=== PATIENT | male | born 1980 | race Two or more races ===

== ENCOUNTER 2025-02-17 16:00 | Emergency (ER) | payer BC, SELFPAY ==
[2025-02-17 16:00] VITALS: BMI 32.1
--- NOTE | 2025-02-17 16:03 | EKG_ITS ---
[facility] Test Date: 2025-02-17 Pat Name: SIOBHAN SEPULVEDA Department: Room: - Gender: Male Property [employer] Intern: : 1980 Requested By: Blaise Marroquin (BEBETO) Order Number: [id number] Reading MD: Blaise Marroquin (BEBETO) Measurements Intervals [place] Rate: 78 P: 41 SD: 142 QRS: 55 QRSD: 94 T: 48 QT: 364 QTc: 416 Interpretive Statements SINUS RHYTHM POSSIBLE LEFT ATRIAL ENLARGEMENT [-0.1mV P-WAVE IN V1/V2] Compared to ECG 02/26/2023 11:11:33 Sinus bradycardia no longer present /store/S0/[id number].pdf
[2025-02-17 16:30] VITALS: BP 143/88; PULSE 78; RESP 20; TEMP 37.1; O2SAT 97
--- NOTE | 2025-02-17 16:33 | XR_ITS ---
Examination: CT brain head without contrast. 2-D sagittal coronal reconstructions Date and time of exam:February 17, 2025 7006 hours INDICATIONS: Onset headaches beginning one week ago CTDI: vol (mGy):53 DLP: (mGycm):1145 Technique: Multiple CT axial sections of the brain have been obtained, 5 mm slice thickness. Contrast has not been administered. 2-D sagittal, coronal reconstructions have been obtained Low dose protocols were performed. One or more of the following dose reduction techniques were used; automated exposure control, adjustment of the mA and/or KV according to patient size, use of iterative reconstruction technique. Findings: No significant ventricular enlargement. Intra-axial or extra-axial hemorrhage density is not seen. No mass effect or midline shift Basal cisterns are not remarkable. Fourth ventricle is midline. Cranial vault intact. Impression: Negative for acute hemorrhage, mass effect or midline shift Chronic ethmoid sphenoid sinusitis including 10 mm retention cyst in posterior right ethmoid air cells and bilateral maxillary polypoid sinusitis
--- NOTE | 2025-02-17 16:33 | XR_ITS ---
Examination: PA lateral chest 2 views FINDINGS: Upright PA and lateral chest 2 views Standing time: February 17, 2025 1642 hours Comparison August 25, 2020 INDICATION: Chest pain beginning one week ago. FINDINGS: Accentuation basilar bronchovascular markings. Normal heart size No lobar pneumonia or pulmonary edema IMPRESSION: Basilar bronchitis pattern
--- NOTE | 2025-02-17 16:33 | PD.EDRME ---
Rapid Medical Screening Exam RME Arrival date/time: 02/17/25 16:00 41-year-old male presents emergency dept today with complaints of headache generalized fatigue Chief Complaint: Chest Pain Vital signs: Vital Signs Temperature 98.8 F 02/17/25 16:30 Pulse Rate 78 02/17/25 16:30 Respiratory Rate 20 02/17/25 16:30 Blood Pressure 143/88 H 02/17/25 16:30 Pulse Oximetry (%) 97 02/17/25 16:30 Oxygen Delivery Method Room Air 02/17/25 16:30
[2025-02-17 17:00] LABS: Basophils # (Auto) 0.1 Thou/mm3 (0.0-0.2); Basophils % (Auto) 1 % (0-2.5); Eosinophils # (Auto) 0.2 Thou/mm3 (0.0-0.5); Eosinophils % (Auto) 3 % (0-10); Hematocrit 44.7 % (41.0-53.0); Hemoglobin 16.3 g/dL (13.5-16.0); Immature Granulocytes % (Auto) 0 % (0-0); Immature Granulocytes Auto 0.02 Thou/mm3 (0.00-0.00); Lymphocytes # (Auto) 2.5 Thou/mm3 (1.0-4.8); Lymphocytes % (Auto) 30 % (10-50); Mean Corpuscular HGB Conc 36.5 g/dl (31.0-37.0); Mean Corpuscular Hemoglobin 30.5 pg (25.0-35.0); Mean Corpuscular Volume 84 fL (80-100); Monocytes # (Auto) 0.5 Thou/mm3 (0.0-0.8); Monocytes % (Auto) 6 % (0-12); Neutrophils # (Auto) 5.2 Thou/mm3 (1.8-7.7); Neutrophils % (Auto) 61 % (37-80); Nucleated Red Blood Cell % 0 /100 WBC (0); Platelet Count 306 Thou/mm3 (140-440); RDW Standard Deviation 37.1 fL (35.1-43.9); Red Blood Count 5.35 Miln/mm3 (4.50-5.90); White Blood Count 8.5 Thou/mm3 (3.8-10.6)
[2025-02-17 17:15] LABS: Partial Thromboplastin Time 27.7 Seconds (22.0-36.0); Prothrombin Time 10.9 Seconds (9.0-12.2)
[2025-02-17 17:21] LABS: Alanine Aminotransferase 33 U/L (10-49); Albumin, Serum 4.7 gm/dL (3.5-5.0); Albumin/Globulin Ratio 1.7 (1.2-2.2); Alkaline Phosphatase 129 U/L (46-116); Anion Gap 9 (7-16); Aspartate Amino Transferase 26 U/L (0-34); BUN/Creatinine Ratio 14 Ratio (12-20); Bilirubin,Total 0.5 mg/dL (0.3-1.2); Blood Urea Nitrogen 14 mg/dL (9-23); Carbon Dioxide 22.9 mMol/L (20.0-31.0); Chloride 108 mMol/L (98-107); Estimated Creatinine Clearance 117.1 mL/min (>60); Globulin 2.7 gm/dL (2.3-3.5); Glucose 118 mg/dL (74-106); Osmolality,Calculated 280 (275-295); Potassium 3.8 mMol/L (3.4-5.1); Sodium 140 mMol/L (136-145); Total Protein 7.4 gm/dL (5.7-8.2); Troponin I < 0.002 ng/mL (0.0-0.045); eGFR > 60 See Note
[2025-02-17 17:43] LABS: B-Type Natriuretic Peptide 20 pg/mL (0-100)
[2025-02-17 19:48] LABS: Collection Type, Urine Clean Catch; RBC,Urine 0 /hpf (0-3); Squamous Epithelial Cell,Urine 0 /hpf (0-5); WBC,Urine 0 /hpf (0-5)
[2025-02-17 20:26] LABS: Bilirubin,Urine Negative (Negative); Blood,Urine Negative (Negative); Clarity,Urine Turbid (Clear/Hazy); Color,Urine Yellow (Lt Yel-Yel); Glucose, Urine Negative (Negative); Ketones,Urine Negative (Negative); Leukocyte Esterase,Urine Negative (Negative); Nitrite,Urine Negative (Negative); Protein,Urine 1+ (Neg - Trace); Specific Gravity,Urine 1.029 (1.001-1.035)
[2025-02-17 21:12] LABS: Amphetamine/Methamp Scrn,U Negative (Negative); Barbiturate Screen,Urine Negative (Negative); Benzodiazepines Screen,Urine Negative (Negative); Benzoylecgonine Screen, Ur Negative (Negative); Fentanyl Screen,Urine Negative (Negative); Opiate Screen,Urine Negative (Negative); THC Screen,Urine Negative (Negative)
[2025-02-17 21:30] VITALS: BP 142/90; PULSE 73; RESP 18; TEMP 36.8; O2SAT 99
--- NOTE | 2025-02-17 21:44 | PD.EDCHEST ---
ED Chest Pain RME/HPI General Chief Complaint: Chest Pain Stated Complaint: CHEST PAIN Time Seen by Provider: 02/17/25 21:44 Arrival date/time: 02/17/25 16:00 RME / HPI RME / HPI narrative: 02/17/25 16:00 41-year-old male presents emergency dept today with complaints of headache generalized fatigue Dr. Farias?s Main ED Evaluation: 44yo male presents to the ED for complaints of chest pain and a headache. Patient states he's had left and intermittent tense mid chest pain since Saturday, reporting he's felt generally fatigued since then. Patient reports associated heartburn and dry cough. Patient was concerned after he started feeling lightheaded today, so he came in for evaluation. Patient denies any shortness of breath, fever, chills, N/V or any other associated symptoms. Patient is not on any daily medications. Denies any tobacco use. States he is a former drinker. No known allergies. Related Data Previous Rx's ?Medication ?Instructions ?Recorded acetaminophen 500 mg capsule 1,000 mg (2 x 500 mg) PO Q6H PRN 02/17/25 pain #30 caps aluminum-mag hydroxide-simethicone 10 ml PO TID PRN indigestion 02/17/25 400 mg-400 mg-40 mg/5 mL oral susp #3,000 mL (Maalox Maximum Strength) famotidine 20 mg tablet 20 mg PO QDAY GERD #20 tabs 02/17/25 ibuprofen 600 mg tablet 600 mg PO Q6H PRN pain #20 tabs 02/17/25 Allergies Allergy/AdvReac Type Severity Reaction Status Date / Time No Known Allergies Allergy Verified 02/17/25 16:03 Review of Systems Review of Systems Systems Reviewed: All systems reviewed, normal except as documented Past Medical History Past Medical History NEUROLOGIC: Negative Neurological Disorders CARDIAC: Negative Cardiac Disorders or Congestive Heart Failure RESPIRATORY: Negative Chronic Obstructive Pulmonary Disease (COPD) GASTROINTESTINAL: Negative Gastrointestinal Disorders GENITOURINARY: Negative Genitourinary Disorders or Renal Disease MUSCULOSKELETAL: Negative Musculoskeletal Disorders ENDOCRINE: Negative Endocrine Disorders, Diabetes Mellitus Type 1 or Diabetes Mellitus Type 2 HEMATOLOGIC: Negative Blood Disorders Social History SMOKING STATUS: Never smoker ED Exam Narrative Physical exam: GENERAL APPEARANCE: alert and oriented x 4, well-developed, well-nourished, no acute distress VITALS: All vitals were reviewed and the pulse ox is 99% on room air, which is normal according to my interpretation. HEENT: Normocephalic, atraumatic; pupils equal, round, reactive to light; EOMI; mucous membranes pink, moist; oropharynx clear NECK: Supple LUNGS: CTABL; no wheezes, no rales, no rhonchi HEART: Regular rate, regular rhythm; normal S1, S2; no murmurs ABDOMEN: non distended; normal BS; soft, no tenderness, no guarding, no rebound; no masses, no organomegaly, no hernia BACK: no CVA tenderness EXTREMITIES: atraumatic; no edema NEUROLOGIC: awake; alert and oriented x4; cranial nerves II-XII grossly intact; no focal sensory or motor deficits PSYCHIATRIC: appropriate mood and affect SKIN: warm, dry, normal color; no rashes Course Course Course Narrative: CXR is ordered for determining the etiology of chest pain. Quality Measures none Orders Category Date Time Status EKG (ED ONLY) *Do not use* NOW Care 02/17/25 16:[address] head/brain wo con Stat Exams 02/17/25 16:33 Completed EKG (ED Only) Stat Exams 02/17/25 16:03 Ordered XR chest 2V Stat Exams 02/17/25 16:33 Completed B-Type Natriuretic Peptide Stat Lab 02/17/25 16:40 Completed CBC Stat Lab 02/17/25 16:40 Completed Comprehensive Metabolic Panel Stat Lab 02/17/25 16:40 Completed Drug Screen,Urine Stat Lab 02/17/25 19:31 Completed Magnesium Stat Lab 02/17/25 16:40 Completed Partial Thromboplastin Time Stat Lab 02/17/25 16:40 Completed Prothrombin Time with INR Stat Lab 02/17/25 16:40 Completed Troponin I Stat Lab 02/17/25 16:40 Completed Urinalysis Stat Lab 02/17/25 19:31 Completed Vital Signs Vital signs: Vital Signs Temperature 98.8 F 02/17/25 16:30 Pulse Rate 78 02/17/25 16:30 Respiratory Rate 20 02/17/25 16:30 Blood Pressure 143/88 H 02/17/25 16:30 Pulse Oximetry (%) 97 02/17/25 16:30 Oxygen Delivery Method Room Air 02/17/25 16:30 Chest Pain MDM Narrative MDM Narrative:: Scribe Attestation: 02/17/25 - Ximena Castillo am scribing for and in the presence of Dr. Farias. Patient data External records reviewed:: [facility] previous records (Per chart review, patient was seen here on 11/10/20 for chest pain.) Clinical information provided by:: patient Social determinants that could affect healthcare access:: none Patient has the following chronic illnesses:: none How is presenting disease/condition affected by chronic disease/condition?: no chronic disease Evaluation data The following diagnostics were reviewed and interpreted by me:: lab results, radiology exam(s) and EKG tracing(s) Lab and/or radiology exams considered but not ordered:: none Interpretation Summary: CBC is normal, PT and INR are normal, PTT is normal, Troponin is normal, BNP is normal, CMP is normal, UA is unremarkable, UDS is negative, according to my interpretation. EKG done at 1633, NSR, rate of 78, normal axis, no ectopy, no acute ischemia, according to my interpretation. ------ [facility] Report Signed Patient: SIOBHAN SEPULVEDA [employer] [facility]. Record#: [id number] Birthdate: 1980 Age/Sex: 44 / M Location: [facility] Attending Dr: Ordering Physician: Cara (BEBETO)Blaise NP Date of Service: 02/17/25 Procedure(s): XR chest 2V Accession Number(s): [id number] cc: Cara (BEBETO),Blaise TATE; Ariel Felton MD; Tonio Muse MD~ Examination: PA lateral chest 2 views FINDINGS: Upright PA and lateral chest 2 views Standing time: February 17, 2025 1642 hours Comparison August 25, 2020 INDICATION: Chest pain beginning one week ago. FINDINGS: Accentuation basilar bronchovascular markings. Normal heart size No lobar pneumonia or pulmonary edema IMPRESSION: Basilar bronchitis pattern Dictated By: Ariel Felton MD Signed By: <Electronically signed by Ariel Felton MD in OV> 02/17/25 1742 [facility] Report Signed Patient: SIOBHAN SEPULVEDA [facility]. Record#: [id number] Birthdate: 1980 Age/Sex: 44 / M Location: [facility] Attending Dr: Ordering Physician: Cara LEÓN)Blaise NP Date of Service: 02/17/25 Procedure(s): CT head/brain wo con Accession Number(s): [id number] cc: Cara LEÓN),Blaise TATE; Ariel Felton MD; Tonio Muse MD~ Examination: CT brain head without contrast. 2-D sagittal coronal reconstructions Date and time of exam:February 17, 2025 7006 hours INDICATIONS: Onset headaches beginning one week ago CTDI: vol (mGy):53 DLP: (mGycm):1145 Technique: Multiple CT axial sections of the brain have been obtained, 5 mm slice thickness. Contrast has not been administered. 2-D sagittal, coronal reconstructions have been obtained Low dose protocols were performed. One or more of the following dose reduction techniques were used; automated exposure control, adjustment of the mA and/or KV according to patient size, use of iterative reconstruction technique. Findings: No significant ventricular enlargement. Intra-axial or extra-axial hemorrhage density is not seen. No mass effect or midline shift Basal cisterns are not remarkable. Fourth ventricle is midline. Cranial vault intact. Impression: Negative for acute hemorrhage, mass effect or midline shift Chronic ethmoid sphenoid sinusitis including 10 mm retention cyst in posterior right ethmoid air cells and bilateral maxillary polypoid sinusitis Dictated By: Ariel Felton MD Signed By: <Electronically signed by Ariel Felton MD in OV> 02/17/25 0835 Medications / Prescriptions Medications or Prescriptions considered but not ordered:: none Medication administrations:: see above, if any Consultations Consultation(s) initiated? (list below): No Diagnosis Chest Pain Differential Diagnosis: other (STEMI, NSTEMI, GERD, viral syndrome) Most likely diagnosis given after review of the tests above:: see clinical impression below Admission Indicated Admission indicated?: not indicated Admission Request Was there a request for admission?: No Disposition Plan Disposition Plan: Discharge Discharge Attestation Discharge Attestation: The patient and all family members were given an opportunity to ask questions and understood the discharge instructions. Discharge instructions specifically effects, indications for sooner follow up or return to the emergency department, and the expected course of current diagnosis. Patient condition: Stable Discharge Plan Plan Patient Disposition: HOME (Self Care) Discharge Disposition comment: Stable for discharge home Patient condition on transfer: Stable Prescriptions/Referrals Prescriptions/Med Rec: New famotidine 20 mg tablet 20 mg PO QDAY Qty: 20 0RF alum-mag hydroxide-simeth [Maalox Maximum Strength] 400-400-40 mg/5 mL suspension 10 ml PO TID PRN (Reason: indigestion) Qty: 3000 0RF acetaminophen 500 mg capsule 1,000 mg PO Q6H PRN (Reason: pain) Qty: 30 0RF ibuprofen 600 mg tablet 600 mg PO Q6H PRN (Reason: pain) Qty: 20 0RF Referrals: Tonio Muse MD [Primary Care Provider] - In 1 week Problem List Clinical Impression: Headache, Chest pain, Bronchitis, GERD (gastroesophageal reflux disease), Light-headedness Patient/Caregiver Discharge Instructions Discharge Activity: activity as tolerated Education Materials: Self-Care for Headaches, ED Bronchitis, No Antibiotic (Adult), ED Chest Pain, Uncertain Cause, ED GERD (Adult) Additional Instructions: Please return to the emergency department if you have any worsening or any further medical problems and we will help you. Otherwise you should follow-up with your primary care doctor within the next several days. You are most likely coming down with some kind of a viral illness. There are multiple medications waiting for you at the pharmacy. You should use the acetaminophen and the ibuprofen for aches, pains, chills, sweats, fevers and bodyaches. The famotidine and the Maalox are for your reflux pain Print Language: Divehi Stand Alone Forms: Deanna Award Info., Patient Portal Info Letter
== END 2025-02-17 22:12 | disposition home or self-care (01) ==
PROVIDERS: Nurse Practitioner Primary Care; Emergency Provider Emergency Medicine; PCP Internal Medicine
DX: J32.3 Chronic sphenoidal sinusitis (principal); K21.9 Gastro-esophageal reflux disease without esophagitis; J40 Bronchitis, not specified as acute or chronic
CPT/HCPCS: 36415; 70450; 71046; 80053; 80307; 81001; 83735; 83880; 84484; 85025; 85610; 85730; 93005; 99284

== ENCOUNTER → 2025-04-07 | Outpatient (CLI) | payer BC, SELFPAY ==
[2025-04-07 11:52] LABS: Collection Type, Urine Clean Catch; Squamous Epithelial Cell,Urine 0 /hpf (0-5)
[2025-04-07 12:06] LABS: Basophils % (Auto) 1 % (0-2.5); Eosinophils # (Auto) 0.2 Thou/mm3 (0.0-0.5); Eosinophils % (Auto) 3 % (0-10); Hematocrit 41.9 % (41.0-53.0); Hemoglobin 15.6 g/dL (13.5-16.0); Immature Granulocytes % (Auto) 0 % (0-0); Immature Granulocytes Auto 0.01 Thou/mm3 (0.00-0.00); Lymphocytes # (Auto) 2.1 Thou/mm3 (1.0-4.8); Lymphocytes % (Auto) 35 % (10-50); Mean Corpuscular HGB Conc 37.2 g/dl (31.0-37.0); Mean Corpuscular Hemoglobin 30.2 pg (25.0-35.0); Mean Corpuscular Volume 81 fL (80-100); Monocytes # (Auto) 0.4 Thou/mm3 (0.0-0.8); Monocytes % (Auto) 7 % (0-12); Neutrophils # (Auto) 3.3 Thou/mm3 (1.8-7.7); Neutrophils % (Auto) 55 % (37-80); Nucleated Red Blood Cell % 0 /100 WBC (0); Platelet Count 278 Thou/mm3 (140-440); RDW Standard Deviation 36.2 fL (35.1-43.9); Red Blood Count 5.16 Miln/mm3 (4.50-5.90)
[2025-04-07 12:17] LABS: Amorphous Crystals,Urine Present (Absent); Bacteria,Urine 1+; Bilirubin,Urine Negative (Negative); Blood,Urine Negative (Negative); Color,Urine Yellow (Lt Yel-Yel); Glucose, Urine Negative (Negative); Ketones,Urine Negative (Negative); Leukocyte Esterase,Urine Negative (Negative); Nitrite,Urine Negative (Negative); Protein,Urine Trace (Neg - Trace); RBC,Urine 9 /hpf (0-3); Specific Gravity,Urine 1.028 (1.001-1.035); WBC,Urine 1 /hpf (0-5)
[2025-04-07 12:20] LABS: Glucose Estimated Average 97 mg/dL (80-131)
[2025-04-07 12:26] LABS: Prostate Specific Antigen 0.82 ng/mL (0-4.00)
[2025-04-07 12:27] LABS: Alanine Aminotransferase 39 U/L (10-49); Albumin, Serum 4.4 gm/dL (3.5-5.0); Albumin/Globulin Ratio 1.8 (1.2-2.2); Alkaline Phosphatase 99 U/L (46-116); Anion Gap 9 (7-16); Aspartate Amino Transferase 27 U/L (0-34); BUN/Creatinine Ratio 12 Ratio (12-20); Blood Urea Nitrogen 11 mg/dL (9-23); Carbon Dioxide 24.4 mMol/L (20.0-31.0); Chloride 108 mMol/L (98-107); Cholesterol 186 mg/dL (132-200); Creatinine (Component) 0.9 mg/dL (0.6-1.3); Globulin 2.4 gm/dL (2.3-3.5); Glucose 88 mg/dL (74-106); HDL Cholesterol 31 mg/dL (40-60); LDL Cholesterol,Calculated 125 mg/dL (0-130); Osmolality,Calculated 279 (275-295); Sodium 141 mMol/L (136-145); Thyroid Stimulating Hormone 0.73 uIU/mL (0.55-4.78); Total Protein 6.8 gm/dL (5.7-8.2); Triglycerides 149 mg/dL (30-150); eGFR > 60 See Note
[2025-04-07 12:30] LABS: Vitamin B12 659 pg/mL (211-911); Vitamin D 25 Hydroxy Total 28.6 ng/mL (7.3-40.2)
[2025-04-07 12:35] LABS: Clarity,Urine Hazy (Clear/Hazy)
== END | disposition home or self-care (01) ==
LOC: COPL 11:32
PROVIDERS: PCP Internal Medicine; Referring Provider Internal Medicine; Visit Provider Internal Medicine
DX: Z00.00 Encounter for general adult medical examination without abnormal findings (principal); E78.5 Hyperlipidemia, unspecified
CPT/HCPCS: 36415; 80053; 80061; 81001; 82306; 82607; 83036; 84153; 84443; 84550; 85025